=== PATIENT | male | born 1985 | race American Indian/Alaskan Native ===

== ENCOUNTER 2017-06-03 23:25 | Emergency (ER) | payer SELFPAY ==
[2017-06-04] MEDS ORDERED: TYLENOL PO ONE (01:45)
[2017-06-04] MEDS ORDERED: TYLENOL ONE (01:49)
--- NOTE | 2017-06-04 03:12 | XRay Report ---
FINAL REPORT EXAM: XR ELBOW 3+V LT HISTORY: arm pain and swelling TECHNIQUE: Three views of the left elbow were submitted. FINDINGS: There is no evidence of fracture or joint effusion. The radial head appears intact. The soft tissues well maintained. IMPRESSION: Within normal limits. If pain symptoms persist, repeat study is recommended 7-10 days for further evaluation.
[2017-06-04] MEDS ORDERED: TORADOL IM ONE (09:40)
--- NOTE | 2017-06-04 09:44 | Emergency Department Report ---
ED Upper Extremity Inj HPI - General Chief Complaint: Extremity Injury, Upper Stated Complaint: LEFT ARM PAIN Time Seen by Provider: 06/04/17 08:42 Source: patient Mode of arrival: Ambulatory Limitations: No Limitations - History of Present Illness Initial Comments: This is a 31-year-old male nontoxic, well nourished in appearance, no acute signs of distress presents to the ED with c/o of left upper extremity pain intermittent years. 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 Patient denies any joint swelling, joint redness, or decreased range of motion. Patient denies any trauma to the region. Denies any chest pain, shortness of breath, fever, chills , nausea, vomiting, headache, stiff neck, numbness or tingling. Patient denies any allergies or past medical history. MD Complaint: Injury to:: arm, elbow, forearm -: year(s) Other Injuries: none Place: work Severity scale (0 -10): 8 Improves With: none Worsens With: none Associated Symptoms: denies other symptoms. denies: weakness, numbness, neck pain, suspects foreign body, nausea/vomiting, heard/felt popping sensat - Related Data Previous Rx's Medication Instructions Recorded Last Taken Type Cyclobenzaprine [Flexeril] 10 mg PO QHS PRN #7 tablet 06/04/17 Unknown Rx Naproxen 500 mg PO Q6H PRN #30 tablet 06/04/17 Unknown Rx Allergies Allergy/AdvReac Type Severity Reaction Status Date / Time No Known Allergies Allergy Verified 06/04/17 01:54 ED Review of Systems ROS: Stated complaint: LEFT ARM PAIN Other details as noted in HPI Constitutional: denies: chills, fever Eyes: denies: eye pain, eye discharge, vision change ENT: denies: ear pain, throat pain Respiratory: denies: cough, shortness of breath, wheezing Cardiovascular: denies: chest pain, palpitations Endocrine: no symptoms reported Gastrointestinal: denies: abdominal pain, nausea, diarrhea Genitourinary: denies: urgency, dysuria Musculoskeletal: denies: back pain, joint swelling, arthralgia Skin: denies: rash, lesions Neurological: denies: headache, weakness, paresthesias Psychiatric: denies: anxiety, depression Hematological/Lymphatic: denies: easy bleeding, easy bruising ED Past Medical Hx - Past Medical History Previous Medical History?: No - Surgical History Past Surgical History?: No - Social History Smoking Status: Never Smoker Substance Use Type: None - Medications Home Medications: Home Medications Medication Instructions Recorded Confirmed Last Taken Type Cyclobenzaprine [Flexeril] 10 mg PO QHS PRN #7 tablet 06/04/17 Unknown Rx Naproxen 500 mg PO Q6H PRN #30 tablet 06/04/17 Unknown Rx ED Physical Exam - General Limitations: No Limitations General appearance: alert, in no apparent distress - Head Head exam: Present: atraumatic, normocephalic, normal inspection - Eye Eye exam: Present: normal appearance, PERRL, EOMI. Absent: scleral icterus, conjunctival injection, nystagmus, periorbital swelling, periorbital tenderness Pupils: Present: normal accommodation - ENT ENT exam: Present: normal exam, normal orophraynx, mucous membranes moist, TM's normal bilaterally, normal external ear exam - Neck Neck exam: Present: normal inspection, full ROM. Absent: tenderness, meningismus, lymphadenopathy, thyromegaly - Respiratory Respiratory exam: Present: normal lung sounds bilaterally. Absent: respiratory distress, wheezes, rales, rhonchi, stridor, chest wall tenderness, accessory muscle use, decreased breath sounds, prolonged expiratory - Cardiovascular Cardiovascular Exam: Present: regular rate, normal rhythm, normal heart sounds. Absent: bradycardia, tachycardia, irregular rhythm, systolic murmur, diastolic murmur, rubs, gallop - GI/Abdominal GI/Abdominal exam: Present: soft, normal bowel sounds. Absent: distended, tenderness, guarding, rebound, rigid, diminished bowel sounds - Rectal Rectal exam: Present: deferred - Extremities Exam Extremities exam: Present: normal inspection, full ROM, tenderness, normal capillary refill. Absent: pedal edema, joint swelling, calf tenderness - Expanded Upper Extremity Exam Left General: Present: normal inspection Shoulder Exam: Present: normal inspection, full ROM. Absent: tenderness, swelling, abrasion, laceration, ecchymosis, deformity, crepidus, dislocation, erythema, tenderness over AC joint Upper Arm exam: Present: normal inspection, full ROM, tenderness. Absent: swelling, abrasion, laceration, ecchymosis, deformity, crepidus, dislocation, erythema Elbow exam: Present: normal inspection, full ROM, tenderness. Absent: swelling , abrasion, laceration, ecchymosis, deformity, crepidus, dislocation, erythema, effusion, pain w/ pronation/supination, tenderness over radial head Forearm Wrist exam: Present: normal inspection, full ROM. Absent: tenderness, swelling, abrasion, laceration, ecchymosis, deformity, crepidus, dislocation, erythema, tenderness over anatomical snuff box, pain with axial thumb loading Hand Wrist exam: Present: normal inspection, full ROM. Absent: tenderness, swelling, abrasion, laceration, ecchymosis, deformity, crepidus, dislocation, erythema, amputation, nail avulsion, subungual hematoma Neuro motor exam: Present: wrist extension intact, thumb opposition intact, thumb IP flexion intact, thumb adduction intact, fingers 2-5 abduction intact Neurosensory exam: Present: 2-point discrimination, radial nerve intact, ulnar nerve intact, median nerve intact Vascular: Present: vascular compromise, normal capillary refill, radial pulse, brachial pulse, ulnar pulse - Back Exam Back exam: Present: normal inspection, full ROM. Absent: tenderness, CVA tenderness (R), CVA tenderness (L), muscle spasm, paraspinal tenderness, vertebral tenderness, rash noted - Neurological Exam Neurological exam: Present: alert, oriented X3, CN II-XII intact, normal gait, reflexes normal - Psychiatric Psychiatric exam: Present: normal affect, normal mood - Skin Skin exam: Present: warm, dry, intact, normal color. Absent: rash - Other Other exam information: Negative joint swelling, joint redness or decreased range of motion. No signs or symptoms of cellulitis. Not warm to touch. ED Course Vital Signs 06/04/17 06/04/17 06/04/17 01:45 01:50 02:45 Temperature 98.2 F Pulse Rate 79 Respiratory 20 18 18 Rate Blood Pressure 99/67 O2 Sat by Pulse 99 Oximetry - Reevaluation(s) Reevaluation #1: 06/04/17 09:44 Patient is speaking in full sentences with no signs of distress noted. ED Medical Decision Making - Medical Decision Making This is a 31-year-old male presents with muscular pain of left upper extremity. Patient is stable and was examined by me. X-ray of elbow has been obtained and the radiologist as normal exam. Upon examination there is no signs or symptoms of any cellulitis, joint redness, or joint swelling. He does have normal range of motion. Vital signs are stable and patient is afebrile. Patient did receive Toradol in the ED was persistent symptoms are improving and has subsided. Patient is discharged with naproxen and Flexeril and was instructed not to operate any machinery while taking Flexeril due to drowsiness. Patient was instructed Follow-up with a primary care doctor in 3-5 days or if symptoms worsen and continue return to emergency room as soon as possible. At time time of discharge, the patient does not seem toxic or ill in appearance. No acute signs of distress noted. Patient agrees to discharge treatment plan of care. No further questions noted by the patient. This chart is dictated with using [employer] Dictation Program Critical care attestation.: If time is entered above; I have spent that time in minutes in the direct care of this critically ill patient, excluding procedure time. ED Disposition Clinical Impression: Left upper arm pain Disposition: DC- TO HOME OR SELFCARE Is pt being admited?: No Does the pt Need Aspirin: No Condition: Stable Instructions: Cyclobenzaprine (By mouth), Naproxen (By mouth) Additional Instructions: Follow-up with a orthopedic doctor in 24 hours or if symptoms worsen and continue return to emergency room as soon as possible. Prescriptions: Cyclobenzaprine [Flexeril] 10 mg PO QHS PRN #7 tablet PRN Reason: Muscle Spasm Naproxen 500 mg PO Q6H PRN #30 tablet PRN Reason: Pain Referrals: ANA MARÍA MYERS MD [Primary Care Provider] - 3-5 Days PRIMARY CAREMD [Referring] - 3-5 Days [facility] [Outside] - 3-5 Days [facility] [Outside] - 3-5 Days MARCIA MURRAY MD [Staff Physician] - 24 Hours Forms: Work/School Release Form(ED)
[2017-06-04 09:55] VITALS: BP 120/58
== END 2017-06-04 10:21 | disposition home or self-care (01) ==
LOC: ED 23:25
DX: M79.622 Pain in left upper arm (principal)
CPT/HCPCS: 73080; 96372; 99283; J1885